=== PATIENT | female | born 1940 | race Caucasian/White ===

== ENCOUNTER → 2016-03-17 | Outpatient (CLI) | payer OTHER ==
[~2016-03-17] VITALS: Ht 160 cm; Wt 67.7 kg
[~2016-03-17] MED LIST: AMBIEN 10 MG TA10 MG PO; ASPIRIN EC325 M1 PO; ASPIRIN325 PO; ASPIRIN81 M2 PO; BETA BLOCKER PO; CYCLOBENZAPRINE10 MG PO; FENTANYL PA25 MCG/HR TRANSDERM; GABAPENTIN PO; HYDROCODON-ACE1 EAC5 PO; LEVOTHYROXIN0.025 MG PO; LIDODERM 5%1 PATCH TOP; LOPRESSOR25 PO; LOPRESSOR50 PO; LOW DOSE ASPIRI81 M1 PO; MIRALAX255 GM; MULTIVITAMINS PO; NEURONTIN 300300 M1 PO; NORVASC5 MG PO; NUCYNTA50 MG PO; PLAVIX 75 MG TA75 M1 PO; PLAVIX 75 MG TA75 MG PO; PRAVACHOL40 MG PO; PROZAC 10 MG CA10 M1 PO; PROZAC10 MG PO; ROBAXIN 750 MG750 M1 PO; ULTRAM 50MG TAB50 MG PO; VITAMIN D1000 UNI1 PO; ZOCOR80 MG PO
--- NOTE | ~2016-03-17 | HPC ---
[facility] [place] [address] PAIN MANAGEMENT CONSULTATION Name: AI ONOFRE Room #: REG BRITTANY AlvarengaFélix#: [id number] Admission: 03/17/16 Attend Phys: Andrea Aguilar MD Discharge: Date of : 36 Report #: [id number] THIS REPORT FOR: //name// CC: [facility] physician/PCP Andrea Aguilar DATE OF SERVICE: 03/17/2016 FOLLOWUP VISIT FOR: Low back pain with radiculopathy. The patient is here today for repeat epidural injection. She has had a previous laminectomy as well as effusion. She has pedicle screws only on the left, which is where her pain is and it radiates along the L4-L5 distribution. As I had good success in treating her intermittent pain with injections at L4-L5 neural foraminal. This injection in between the pedicle screws has provided a greater than 80% relief for up to 2 months before pain gradually returns. She is now at pain level 6 and pain is increasing and she would like another injection. In addition to her back and radicular pain, she also has some left hip pain. Her hip pain is status post hip replacement. One month following her hip replacement in 02/2015 she had a hip dislocation. She had returned to the Emergency Room for reduction of the dislocation and has been complaining of localized soft tissue pain ever since. MEDICATIONS: Reviewed and reconciled from the electronic medical record. She takes Plavix, but discontinued it for 7 days in anticipation of an injection. PHYSICAL EXAMINATION: She is a chantal 75-year-old, appears younger than her stated age. Her blood pressure 136/69, heart rate is 54. BMI is 26.4. She walks with mild antalgic features. She has restrictions and range of motion with flexion and extension. Straight leg raising reproducing pain on the left. Tenderness also in the left hip with internal and external rotation. Sensation is normal in lower extremities. IMPRESSION: Chronic low back pain with radiculopathy status post lumbar fusion. She has radiculopathy on the left following an L4-L5. PLAN: Repeat transforaminal epidural injection L4-L5 under fluoroscopic guidance. PROCEDURE: She was taken to the fluoroscopic suite for treatment, placed prone, skin prepped with ChloraPrep. Skin anesthetized over the L4-L5 neural foramen. Triplanar fluoroscopic views were used to guide the needle into the epidural space through the neural foramen. There was no blood or CSF aspirated. A 1 mL of Omnipaque was injected with excellent spread of dye observed in the epidural space followed by 3 mL of 0.5% lidocaine mixed with 80 mg of triamcinolone. She [address] [address] PAIN MANAGEMENT CONSULTATION Name: JEMIMAAI RAMÍREZ Room #: REG BRITTANY Holliday#: [id number] Admission: 03/17/16 Attend Phys: Andrea Aguilar MD Discharge: Date of : 38 Report #: [id number] tolerated the procedure well and was observed for 45 minutes and discharged. Followup visit planned on an as needed basis. No new medications were ordered today. <ELECTRONICALLY SIGNED> By: Andrea Aguilar MD 03/29/16 1130 1423 2104 Andrea Aguilar MD /nt
[2016-03-17 09:59] VITALS: BP 136/69
== END | disposition home or self-care (01) ==
LOC: PAIN 07:00
DX: M54.16 Radiculopathy, lumbar region (principal); G89.29 Other chronic pain; Z98.890 Other specified postprocedural states

== ENCOUNTER → 2016-11-17 | Outpatient (CLI) | payer OTHER ==
[~2016-11-17] VITALS: Ht 160 cm; Wt 66.2 kg
--- NOTE | ~2016-11-17 | HPC ---
[facility] [place] [address] PAIN MANAGEMENT CONSULTATION Name: AI ONOFRE Room #: REG BRITTANY Alvarenga.#: [id number] Admission: 11/17/16 Attend Phys: Andrea Aguilar MD Discharge: Date of : 38 Report #: [id number] THIS REPORT FOR: //name// CC: JOHANNY Aguilar DATE OF SERVICE: 11/17/2016 Followup visit for chronic pain. SUBJECTIVE: The patient returns to pain clinic today with a new onset pain. She has trigger points located in the right flank. She has had numerous tests to look for gallbladder, kidney stones or other causes. CT and MRIs have all been negative other than a small cyst on the right kidney, which is felt to be benign. Her pain is deep and muscular, is located underneath the ribcage in the area of the quadratus lumborum and other posterior muscles. It is worsened with flexion and extension. She also has pain in her left buttock that radiates down into her leg consistent with radiculopathy, which has been treated successfully in the past with epidural injections using a transforaminal approach. Today, her most significant pain, however, is the right flank. PHYSICAL EXAMINATION: VITAL SIGNS: Blood pressure is 129/73, heart rate 80, respirations 16. MUSCULOSKELETAL: She has pain with weightbearing and walking, pain with forward flexion and extension. Straight leg raising is positive on the left, reproducing sciatica down into the left anterior leg and foot. Myofascial tenderness is noted in the right flank as noted above. IMPRESSION: Myofascial pain, right flank. RECOMMENDATIONS: Trigger point injections. PROCEDURE: Skin was prepped with ChloraPrep and I used a 27-gauge needle to infiltrate a total of 15 mL of 0.25% bupivacaine and 15 mg of triamcinolone into multiple muscle groups in the right flank. The area was massaged deeply before she was discharged. The pain score had diminished to 0 at the time of discharge. Followup visit planned as needed for treatment of her radiculopathy. By: [id number] Andrea Aguilar MD /nt
[2016-11-17 14:37] VITALS: BP 111/67
== END ==
LOC: PAIN 07:36
DX: M79.1 Myalgia (principal); I10 Essential (primary) hypertension; M17.12 Unilateral primary osteoarthritis, left knee; F32.9 Major depressive disorder, single episode, unspecified; Z79.01 Long term (current) use of anticoagulants; Z88.5 Allergy status to narcotic agent; Z79.899 Other long term (current) drug therapy; Z79.82 Long term (current) use of aspirin

== ENCOUNTER → 2016-12-01 | Outpatient (CLI) | payer OTHER ==
[~2016-12-01] VITALS: Ht 160 cm; Wt 63.5 kg
--- NOTE | ~2016-12-01 | HPC ---
[facility] [place] [address] [address] PAIN MANAGEMENT CONSULTATION Name: AI ONOFRE Room #: REG BRITTANY Alvarenga.#: [id number] Admission: 12/01/16 Attend Phys: Andrea Aguilar MD Discharge: Date of : 38 Report #: [id number] THIS REPORT FOR: //name// CC: JOHANNY Aguilar DATE OF SERVICE: 12/01/2016 Followup visit for chronic low back pain status post lumbar fusion. The patient is here today for left L4-L5 transforaminal injection. She has received up to 90 days of good pain relief with these injections intermittent and it is grateful for relief to avoid any further surgery. She is back today with pain in her left leg, which she describes as chronic, constant, aching, sharp and stabbing, 5-6/10, worse with standing and walking. Medications reviewed and reconciled from the electronic record and we discussed her current usage. She has tramadol 50 mg for pain and takes Ambien at night to help with sleep. She has been on Plavix but discontinued 7 days in anticipation of injection. I gave her some trigger point injections and she said she had about 5-6 days of really pretty significant discomfort, then woke up one morning and the pain was gone. She is grateful for the trigger points. PHYSICAL EXAMINATION: Today, she is pleasant, moves from sitting to standing position with antalgic feature. She has positive straight leg raising on the left that follows an L4-L5 distribution. She describes her straight leg raising as electrical, shooting, sharp, stabbing pain. Sensation is intact. No focal weakness is noted. IMPRESSION: Post-laminectomy syndrome with radiculopathy, fusion of L4-L5. PLAN: Repeat transforaminal epidural injection at L4-L5 under fluoroscopic guidance. The patient was prepped with ChloraPrep. Skin was anesthetized and a 20-gauge Tuohy epidural needle advanced into the neural foramen using triplanar fluoroscopic views. I injected 1 mL of Omnipaque and good spread of dye was observed into the epidural space after adjusting the needle. I followed it with 3 mL of 0.5% lidocaine mixed with 80 mg of triamcinolone. She tolerated the procedure well and was observed for 30 minutes and discharged. [address] [address] PAIN MANAGEMENT CONSULTATION Name: AI ONOFRE Room #: REG [facility] RikFélix#: [id number] Admission: 12/01/16 Attend Phys: Andrea Aguilar MD Discharge: Date of : 38 Report #: [id number] Follow up as needed. By: 1542 [id number] Andrea Aguilar MD /nt
[2016-12-01 13:52] VITALS: BP 124/56
== END | disposition home or self-care (01) ==
LOC: PAIN 07:27
DX: M54.16 Radiculopathy, lumbar region (principal); M96.1 Postlaminectomy syndrome, not elsewhere classified; G89.29 Other chronic pain; Z98.890 Other specified postprocedural states; Z88.6 Allergy status to analgesic agent; Z79.899 Other long term (current) drug therapy; Z79.82 Long term (current) use of aspirin

== ENCOUNTER → 2017-08-17 | Outpatient (CLI) | payer OTHER ==
[~2017-08-17] VITALS: Ht 152.4 cm; Wt 69.8 kg
--- NOTE | ~2017-08-17 | HPC ---
[facility] [place] [address] PAIN MANAGEMENT CONSULTATION Name: AI ONOFRE Room #: REG BRITTANY Alvarenga.#: [id number] Admission: 08/17/17 Attend Phys: Andrea Aguilar MD Discharge: Date of : 38 Report #: [id number] THIS REPORT FOR: //name// CC: JOHANNY Mcclelland MD Physician staff Andrea Aguilar DATE OF SERVICE: 08/17/2017 Followup visit for postlaminectomy syndrome. The patient is here today for transforaminal epidural injection. She responds beautifully to these injections. She had a fusion and continues to complain of pain at the area where she has pedicle screws and bell on the left. The pain radiates down into her left leg following an L4 distribution. Her last injection performed in 2017 provided months of relief. She is here today for another transforaminal epidural injection. She has discontinued her Plavix in anticipation of that injection. She has been off it for 7 days. All medications were reviewed and reconciled. There have been no changes. We do not provide any oral opioid medications for her for treatment of pain. She is not a fall risk. She does not use tobacco. She has maintained her weight. Her BMI is 30. She watches her diet carefully. PHYSICAL EXAMINATION: 5 feet tall, 152 pounds, BMI is 30, blood pressure 126/56, heart rate 64. Pain intensity is a 6-7. She moves easily from sitting to standing position, but walks with antalgic gait. She has positive straight leg raising on the left. Pain radiates down the lateral aspect of the leg as well as a bit towards the anterior aspect of the leg. Sensation is intact. No focal weakness is noted. Deep tendon reflexes are diminished bilaterally in lower extremities. IMPRESSION: Lumbar radiculopathy on the left. RECOMMENDATION: Left L4-L5 transforaminal epidural injection under fluoroscopic guidance. PROCEDURE: She was taken to fluoroscopic suite, placed prone, skin prepped with ChloraPrep. Skin anesthetized over the L4-L5 neural foramen. Using triplanar fluoroscopic views, I advanced the needle nicely into the epidural space. 1 mL of Omnipaque demonstrated spread within the epidural space and along the nerve [address] [address] PAIN MANAGEMENT CONSULTATION Name: AI ONOFRE Room #: REG BRITTANY Holliday#: [id number] Admission: 08/17/17 Attend Phys: Andrea Aguilar MD Discharge: Date of : 38 Report #: [id number] root. It was then followed by 3 mL of 0.5% lidocaine mixed with 80 mg triamcinolone. She tolerated the procedure well and was observed for 45 minutes and discharged. Followup visit is planned in the pain clinic on an as needed basis. No medications were ordered for the patient today. By: 1138 1845 Andrea Aguilar MD /ramos
[2017-08-17 10:14] VITALS: BP 126/56
== END | disposition home or self-care (01) ==
LOC: PAIN 06:42
DX: M54.16 Radiculopathy, lumbar region (principal); G89.29 Other chronic pain; M96.1 Postlaminectomy syndrome, not elsewhere classified; Z98.890 Other specified postprocedural states; Z79.899 Other long term (current) drug therapy; Z79.82 Long term (current) use of aspirin; Z88.8 Allergy status to other drugs, medicaments and biological substances

== ENCOUNTER → 2017-09-17 | Outpatient (CLI) | payer OTHER ==
[~2017-09-17] VITALS: Ht 152.4 cm; Wt 69.5 kg
--- NOTE | ~2017-09-17 | HPC ---
[facility] [address] [place] [address] PAIN MANAGEMENT CONSULTATION Name: AI ONOFRE Room #: REG BRITTANY RoFélixDonald.#: [id number] Admission: 09/17/17 Attend Phys: Andrea Aguilar MD Discharge: Date of : 38 Report #: [id number] THIS REPORT FOR: //name// CC: JOHANNY Mcclelland MD Physician staff Andrea Aguilar DATE OF SERVICE: 09/17/2017 Followup visit for chronic pain. History of post-laminectomy syndrome with fusion in the lumbosacral region and now with cervical radiculopathy, bilateral involving C5 through C7 distribution. The patient is here today at the request of Jenelle Dietrich APRN for a cervical epidural injection. She has responded nicely to a transforaminal injection provided intermittently around her hardware in the low back for left lumbar radicular symptoms. Her last injection there was about 1 month ago and she has sustained improvement. She is complaining today, more of pain in the cervical region with radiation into her arms in addition to pain that follows a dermatomal distribution into the hands. She also complains of tingling and numbness. She has not noticed significant weakness with things such as taking jar lids off or fine motor issues, but the numbness and the pain are bothersome. Reviewed her MRI in detail with Jenelle Dietrich, so I did not do that with her once again with case thoroughness, but she understands that neural foraminal stenosis and spinal stenosis is an underlying reason for her symptoms. I agree with Jenelle that an injection may provide some symptomatic relief and might be able to be effective preventing the need for surgery. All medications have been reviewed and reconciled, there have been no significant changes. She takes no opioid medication. She is not a fall risk. She was on Plavix, but has discontinued it for 9 days in anticipation of an injection. She does not have hypertension. 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 PHYSICAL EXAMINATION: She is a pleasant female. Blood pressure 119/70, heart rate 96, respirations 16. BMI is 29.9. Cervical range of motion is limited in extension, which reproduces symptoms at about 15 degrees. Rotational movements are performed with some mild exacerbation of symptoms as well as lateral tilt. There is tenderness over the vertebral prominence. Documentation Spec strength, biceps, triceps strength are adequate. Sensation is diminished in the C5-C6 [address] [address] PAIN MANAGEMENT CONSULTATION Name: AI ONOFRE Room #: REG CL Colette.#: [id number] Admission: 09/17/17 Attend Phys: Andrea Aguilar MD Discharge: Date of : 38 Report #: [id number] distribution as well as laterally out into the site C7-C8 distribution. Deep tendon reflexes are trace at the biceps, triceps and brachioradialis and 1+ at the knees and ankles with no evidence of hyperreflexia. MRI scan reviewed, shows multilevel spinal stenosis and central stenosis of the lower cervical spine. RECOMMENDATIONS: Cervical epidural injection under fluoroscopic guidance. PROCEDURE: She was taken to fluoroscopic suite for the injection and she was placed prone. She was anesthetized with 1% lidocaine over C6-C7. A 20-gauge Tuohy epidural needle advanced on the first attempt in the epidural space with loss of resistance. There was no blood or CSF aspirated. 1 mL of Omnipaque was injected. Good spread of dye observed in the epidural space followed by 3 mL of 0.5% lidocaine mixed with 80 mg triamcinolone. She tolerated the procedure well and was observed for 45 minutes and discharged. Followup visit planned in the pain clinic in 3 months. By: 1131 1944 Andrea Aguilar MD /nt
[2017-09-17 10:12] VITALS: BP 119/70
== END | disposition home or self-care (01) ==
LOC: PAIN 06:37
DX: M54.12 Radiculopathy, cervical region (principal)

== ENCOUNTER → 2017-12-03 | Outpatient (CLI) | payer OTHER ==
[~2017-12-03] VITALS: Ht 160 cm; Wt 70.0 kg
--- NOTE | ~2017-12-03 | HPC ---
[facility] [place] [address] PAIN MANAGEMENT CONSULTATION Name: AI ONOFRE Room #: REG Bijal Alvarenga.#: [id number] Admission: 12/03/17 Attend Phys: Andrea Aguilar MD Discharge: Date of : 38 Report #: [id number] THIS REPORT FOR: //name// CC: JOHANNY Mcclelland MD Physician staff Andrea Aguilar DATE OF SERVICE: 12/03/2017 Followup visit for chronic low back pain with radiculopathy, post-laminectomy and fusion. The patient returns to clinic today and would like an epidural injection using a transforaminal approach at L4-L5. This has been a successful procedure performed for her on multiple occasions and she has consistent results. We are grateful for the benefit that she receives from this because it allows her to get by without taking stronger pain medication. Today, she reports that her pain is returning. Her last injection was in August for the same condition, so it has been almost 3-1/2 months. 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 I am pleased to report that she had a substantial improvement following that injection. She no longer has any cervically generated symptoms. The majority of her pain now is in the low back and radiates down into her left leg consistent with a post-laminectomy radiculopathy. She has been fused and she has remaining hardware on the left and right hardware is not present. The patient has known neural foraminal stenosis and spinal stenosis. She has seen the neurosurgery team and Jenelle Dietrich, advanced practice nurse, has noted that she responds well to epidural injections and agrees with this process of going forward with epidural injections on an as needed basis. PHYSICAL EXAMINATION: The patient is pleasant, alert and oriented, without signs of depression, anxiety or overmedication. She is able to move from sitting to standing position, but ambulates with antalgic features. She has pain across her low back. Tenderness over her scar. She has pain with forward flexion and extension. Rotational movements also exacerbate pain. Straight leg raising on the left reproduces pain radiating into the lower leg. She has some numbness and tingling. IMPRESSION: Chronic low back pain status post laminectomy infusion. [address] [address] PAIN MANAGEMENT CONSULTATION Name: JEMIMAAI ELMORE Room #: REG Bijal Alvarenga.#: [id number] Admission: 12/03/17 Attend Phys: Andrea Aguilar MD Discharge: Date of : 38 Report #: [id number] RECOMMENDATIONS: Transforaminal epidural injection under fluoroscopic guidance. Prior to performing procedure, we reviewed all medications. She has been off her blood thinner for 7 days. Risks and benefits were reviewed once again before we proceeded. She was taken to fluoroscopic suite, placed prone, skin prepped with ChloraPrep. Skin anesthetized over the L4-L5 neural foramen. A 20-gauge Tuohy epidural needle was advanced between the hardware pedicle screws and into the neural foramen with triplanar fluoroscopic views. There was no blood nor CSF aspirated. 1 mL of Isovue demonstrated good spread of dye into the epidural space and also into the neural foramen; it was followed by 3 mL of 0.5% lidocaine mixed with 80 mg of triamcinolone. She tolerated the procedure well. She was observed for 45 minutes. Followup visit is planned in the pain clinic in 3 months, sooner if necessary. No pain medications were ordered. She is instructed to restart her blood thinners this evening. <ELECTRONICALLY SIGNED> By: Andrea Aguilar MD 12/04/17 1312 1325 2152 Andrea Aguilar MD /nt
[2017-12-03 10:54] VITALS: BP 117/59
== END | disposition home or self-care (01) ==
LOC: PAIN 07:10
DX: M54.16 Radiculopathy, lumbar region (principal); G89.29 Other chronic pain; M96.1 Postlaminectomy syndrome, not elsewhere classified; M48.061 Spinal stenosis, lumbar region without neurogenic claudication; Z98.890 Other specified postprocedural states; Z88.6 Allergy status to analgesic agent; Z79.899 Other long term (current) drug therapy; Z79.82 Long term (current) use of aspirin

== ENCOUNTER → 2018-05-06 | Outpatient (CLI) | payer OTHER ==
[~2018-05-06] VITALS: Ht 160 cm; Wt 70.9 kg
[2018-05-06 11:16] VITALS: BP 138/62
--- NOTE | 2018-05-06 11:24 | NUR ---
Pain Clinic Assessment: 1. History of Osteoarthritis: BACK HIPS History of Rheumatoid Arthritis: Not Applicable 2. Height: 5 ft. 3 in. 160.0 cm. Weight: 156.4 lb. oz. 70.943 kg. Patient's BMI: 27.7 3. Vital Signs: BP: 138/62 Pulse: 95 Resp: 16 Temp: 02 Sat: 96 ECG Mon: 4. Pain Intensity: 7 5. Fall Risk: Dizziness: N Needs help standing or walking: N Fallen in the last 3 months: N Fall risk comments: 6. Patient on Blood Thinner: Clopidogrel Bisulf(Plavix 7. History of Hypertension: N 8. Opioid Therapy greater than 6 weeks: N Opiate Contract Signed: 9. Risk Assessment Tool Provided: 2-low risk 10. Functional Assessment Tool: 11. Recreational Drug Use: Never Drug Type: Tobacco Use: Never Smoker Tobacco Type: Amount or Packs/day: How Many Years: Alcohol Use: No Frequency: Quant:
--- NOTE | 2018-05-12 15:29 | CRIT ---
[facility] [address] [place] [address] CRITICAL CARE NOTE Name: AI ONOFRE Room #: REG BRITTANY Alvarenga.#: [id number] Admission: 05/06/18 ������������������ Attend Phys: Andrae Aguilar MD Discharge: ������������������ Date of : 38 Report #: [id number] THIS REPORT FOR: //name// CC: JOHANNY RUANO Physician staff Andrea Aguilar DATE OF SERVICE: 05/06/2018 Followup visit for chronic low back pain with radiculopathy, post laminectomy and fusion. The patient is a longstanding patient who has responded very beautifully to epidural injections. She has a fusion that has continued to cause chronic pain and she has radicular component with it as well. Her pain is primarily on the left and radiates down through the left leg. I have injected her on several occasions between the 2 pedicle screws using a transforaminal approach with an excellent response. She is here today hoping for another injection. She scores her current pain as a 7/10, burning, weakness in her leg, worse with standing and improved by medication and the epidural. MEDICATIONS: All medications were reviewed and reconciled from the electronic medical record. She takes Plavix, but has discontinued it for over 7 days in anticipation of an injection. Medical record actually states that her last dose of Plavix was on 11/25/2017. ALLERGIES: CODEINE. She denies use of tobacco or alcohol. She has not fallen. She is not a fall risk. She is at low risk for addiction having completed an opioid risk tool with a score of 2. PHYSICAL EXAMINATION: Blood pressure 138/62, heart rate 95, respirations 16, BMI is 27.7. She moves easily from sitting to standing position, but has a mild antalgic feature to her gait. She has limited range of motion in flexion, extension limited by her spinal surgery. She has tenderness across her scar. She has more pain that radiates into the left hip than anything else. Positive straight leg raising discomfort is noted with pain radiating into the left hip. IMPRESSION: Chronic low back pain, status post laminectomy and fusion. She has an L4-L5 radiculopathy on the left, which has responded to epidural injection. She has known foraminal and spinal stenosis at that level. PLAN: Repeat epidural injection under fluoroscopic guidance. [address] [address] CRITICAL CARE NOTE Name: JEMIMAAI RAMÍREZ Room #: REG [facility] Colette.#: [id number] Admission: 05/06/18 ������������������ Attend Phys: Andrea Aguilar MD Discharge: ������������������ Date of : 36 Report #: [id number] PROCEDURE: She was taken to the fluoroscopic suite for a transforaminal injection. She was placed prone, skin was prepped with ChloraPrep. Skin was anesthetized over the L4-L5 neural foramen. Using triplanar fluoroscopic views, I advanced the needle into the neural foramen. 1 mL of Omnipaque was injected. Good spread of dye was observed in the epidural space and along the pedicle. It was then followed by 3 mL of 0.5% lidocaine mixed with 80 mg of triamcinolone. She tolerated the procedure well. Pain reduced to a 2 at discharge. Follow up as needed. ��������������������������������������������� <ELECTRONICALLY SIGNED> ���������������������������������������� By: Andrea Aguilar MD ��������������������������������������������� 05/12/18 1529 1030 2242 Andrea Aguilar MD /nt
== END | disposition home or self-care (01) ==
LOC: PAIN 06:47
DX: M54.16 Radiculopathy, lumbar region (principal); G89.29 Other chronic pain; M19.90 Unspecified osteoarthritis, unspecified site; Z98.890 Other specified postprocedural states; Z88.6 Allergy status to analgesic agent; Z79.01 Long term (current) use of anticoagulants

== ENCOUNTER → 2018-09-13 | Outpatient (CLI) | payer OTHER ==
[~2018-09-13] VITALS: Ht 152.4 cm; Wt 69.1 kg
--- NOTE | ~2018-09-13 | HPC ---
[facility] [place] [address] PAIN MANAGEMENT CONSULTATION Name: IA ONOFRE Room #: REG BRITTANY RoFélixDonald.#: [id number] Admission: 09/13/18 ������������������ Attend Phys: Andrea Aguilar MD Discharge: ������������������ Date of : 36 Report #: [id number] THIS REPORT FOR: //name// CC: JOHANNY RUANO Physician staff Andrea Aguilar DATE OF SERVICE: 09/13/2018 Followup visit for chronic low back pain with radiculopathy radiating down the left leg. Status post laminectomy and fusion. She has pedicle screw between L4 and L5. The patient was last seen in April. She is here today with recurrence of pain radiating into her left leg. The record will reflect that she has responded very nicely to epidural injections. The injection was performed between the 2 pedicle screws using a transforaminal approach at L4-L5. She typically had pretty significant improvement within the first few days and then it sustained. Her last injection worked well. She supplements with 1 tramadol a day generally and then when the pain becomes more severe, she takes up to 3 per day. Medications are provided by her primary care service, so I am providing only the interventional approach for her. Today, she returns to clinic scoring her pain as a 5-6/10. She says it does not radiate as far, but is more intense in the buttock and radiating through the thigh. This is consistent with the dermatomal distribution of L4 as well as with the L5 distribution on the left exclusively. PQRS: 1. Positive for osteoarthritis involving hips and back. 2. BMI is 29. 3. Vital signs: Blood pressure 131/73, heart rate 62, respirations 16, O2 sat 97%. 4. Pain intensity, 5-6/10. 5. She has no difficulty getting up and down from a chair, walking or standing. She has not fallen in the last 3 months. 6. She is on Plavix, which was discontinued for the requisite 7 days in anticipation of an injection today. 7. She has no history of hypertension. All medications were reviewed and reconciled today. 8. No opioid agreement in our clinic. She is provided medication, tramadol by her primary physician. 9. She has completed an opioid risk tool as we do for all patients. Her score is 2 consistent with low risk for addiction. 10. She denies use of tobacco or alcohol. [address] [address] PAIN MANAGEMENT CONSULTATION Name: AI ONOFRE Room #: CHINTAN SOTO Mg#: [id number] Admission: 09/13/18 ������������������ Attend Phys: Andrea Aguilar MD Discharge: ������������������ Date of : 36 Report #: [id number] PHYSICAL EXAMINATION: VITAL SIGNS: As noted. BMI 29.8. She moves from an independent standing position to walking without difficulty. Her gait is nonantalgic. CHEST: Clear. CARDIAC: Rhythm is regular. MUSCULOSKELETAL: Examination of the spine reveals scarring from previous surgery, which is mildly tender. Pain radiates from the scar through the left hip into the L4-L5 distribution as far as the posterolateral thigh. She has less discomfort into the calf today. Straight leg raising is positive on the left with radicular symptoms. IMPRESSION: Chronic low back pain, post-laminectomy syndrome with fusion. She has a single pedicle screw between L4 and L5. PROCEDURE: L4-L5 transforaminal epidural injection under fluoroscopic guidance. DESCRIPTION OF PROCEDURE: She was taken to fluoroscopic suite, placed prone, skin prepped with ChloraPrep. Skin anesthetized over the L4-L5 neural foramen. Using triplanar fluoroscopic views, I advanced needle into the neural foramen. A 1 mL of Omnipaque injected with excellent spread of dye observed into the epidural space and along the nerve. It was followed then by 3 mL of 0.5% lidocaine mixed with 80 mg triamcinolone. There were no complications. She tolerated the procedure well. She was observed in recovery room and discharged with a followup as needed. No medications ordered. ��������������������������������������������� ���������������������������������������� By: ��������������������������������������������� [id number] Andrea Aguilar MD /nt
[2018-09-13 11:12] VITALS: BP 131/73
--- NOTE | 2018-09-13 11:26 | NUR ---
Pain Clinic Assessment: 1. History of Osteoarthritis: BACK HIPS History of Rheumatoid Arthritis: Not Applicable 2. Height: 5 ft. 0 in. 152.4 cm. Weight: 152.4 lb. oz. 69.128 kg. Patient's BMI: 29.8 3. Vital Signs: BP: 131/73 Pulse: 62 Resp: 16 Temp: 02 Sat: 97 ECG Mon: 4. Pain Intensity: 5-6 5. Fall Risk: Dizziness: N Needs help standing or walking: N Fallen in the last 3 months: N Fall risk comments: 6. Patient on Blood Thinner: Clopidogrel Bisulf(Plavix 7. History of Hypertension: N 8. Opioid Therapy greater than 6 weeks: N Opiate Contract Signed: 9. Risk Assessment Tool Provided: 2-low risk 10. Functional Assessment Tool: 45 11. Recreational Drug Use: Never Drug Type: Tobacco Use: Never Smoker Tobacco Type: Amount or Packs/day: How Many Years: Alcohol Use: No Frequency: Quant:
== END | disposition home or self-care (01) ==
LOC: PAIN 06:54
DX: M54.16 Radiculopathy, lumbar region (principal); G89.29 Other chronic pain; M96.1 Postlaminectomy syndrome, not elsewhere classified; M19.90 Unspecified osteoarthritis, unspecified site; Z79.891 Long term (current) use of opiate analgesic; Z88.6 Allergy status to analgesic agent; Z98.890 Other specified postprocedural states; Z79.82 Long term (current) use of aspirin; Z79.899 Other long term (current) drug therapy

== ENCOUNTER → 2019-02-24 | Outpatient (CLI) | payer OTHER ==
[~2019-02-24] VITALS: Ht 160 cm; Wt 67.0 kg
[~2019-02-24] MED LIST changes: +TRAMADOL 50 MG50 MG PO
--- NOTE | ~2019-02-24 | HPC ---
[facility] [place] [address] PAIN MANAGEMENT CONSULTATION Name: AI ONOFRE Room #: REG BRITTANY RoFélixDonald.#: [id number] Admission: 02/24/19 Attend Phys: Andrea Aguilar MD Discharge: Date of : 36 Report #: [id number] THIS REPORT FOR: //name// CC: JOHANNY Pruitt Physician staff Andrea Aguilar DATE OF SERVICE: 02/24/2019 Followup visit for chronic low back pain, post-laminectomy fusion. Lumbar radiculopathy L4-L5 distribution on the left. The patient returns to pain clinic today to repeat the transforaminal epidural injection that has provided her so much relief over the last few years. She has a longstanding history of back pain and has had several operations. Lumbar fusion was performed and she has hardware that remains in the L4-L5 region on the left only. Her symptoms are all lumbar radicular and follow that distribution. She has responded beautifully to an L4-L5 transforaminal epidural injection under fluoroscopic guidance. Her last injection 6 months ago wore off, somewhere around December. She has been trying to get back in, but was only able to do so now. She would like another injection. This helps cut down on her use of pain medication including tramadol and she sleeps better. When she is having trouble sleeping, she uses zolpidem. All medications were reviewed and reconciled. PQRS REVIEW: Positive for osteoarthritis of hips and back. BMI 29. Blood pressure is 125/62, heart rate 65. Pain intensity 6. She has had no falls in the last 3 months. Plavix, which she typically takes was discontinued in anticipation of her injection. She has been off for 7 days. She denies hypertension. I reviewed all her medications. She has not received medication from our clinic and has no opioid agreement signed. She did complete an opioid risk tool as we request of all patients and her score is 2. This is consistent with a low risk for addiction. She denies use of tobacco or alcohol. PHYSICAL EXAMINATION: VITAL SIGNS: As noted. She moves independently from sitting to standing position. Gait is mildly antalgic. She does not need a cane and she does not appear to be unstable or a fall risk. CHEST: Clear. CARDIAC: Rhythm regular. MUSCULOSKELETAL: Examination of the spine reveals tenderness along the scar. Pain follows the L4-L5 distribution all the way into the foot today. Straight leg raising is mildly positive consistent with L4-L5 radicular symptoms. [address] [address] PAIN MANAGEMENT CONSULTATION Name: AI ONOFRE Room #: REG [facility].#: [id number] Admission: 02/24/19 Attend Phys: Andrea Aguilar MD Discharge: Date of : 36 Report #: [id number] IMPRESSION: Chronic low back pain, post-laminectomy syndrome, status post fusion. She has a single level fusion with pedicle screws at L4 and L5, connected by a bar. Lumbar radiculopathy. PROCEDURE: Left L4-L5 transforaminal epidural injection under fluoroscopic guidance. After informed consent, she was taken to fluoroscopic suite, placed prone, skin prepped with ChloraPrep. Skin anesthetized over the L4-L5 neural foramen. Using triplanar fluoroscopic views, I advanced the needle in the neural foramen. A 1 mL of Omnipaque injected, showed excellent spread of dye into the epidural space and along the nerve root. It was followed by 3 mL of 0.5% lidocaine mixed with 80 mg triamcinolone. She tolerated the procedure well without complication. She was taken to recovery room for observation and discharged in good condition. A followup visit planned as needed. By: [id number] Andrea Aguilar MD /nt
[2019-02-24 09:53] VITALS: BP 152/76
--- NOTE | 2019-02-24 10:07 | NUR ---
Pain Clinic Assessment: 1. History of Osteoarthritis: BACK HIPS History of Rheumatoid Arthritis: Not Applicable 2. Height: 5 ft. 3 in. 160.0 cm. Weight: 147.8 lb. oz. 67.042 kg. Patient's BMI: 26.2 3. Vital Signs: BP: 152/76 Pulse: 74 Resp: 18 Temp: 02 Sat: 97 ECG Mon: 4. Pain Intensity: 9 AT WORST 5. Fall Risk: Dizziness: N Needs help standing or walking: N Fallen in the last 3 months: N Fall risk comments: 6. Patient on Blood Thinner: Clopidogrel Bisulf(Plavix 7. History of Hypertension: N 8. Opioid Therapy greater than 6 weeks: N Opiate Contract Signed: 9. Risk Assessment Tool Provided: 1-LOW RISK 10. Functional Assessment Tool: 50/70 11. Recreational Drug Use: Never Drug Type: Tobacco Use: Never Smoker Tobacco Type: Amount or Packs/day: How Many Years: Alcohol Use: No Frequency: Quant:
== END | disposition home or self-care (01) ==
LOC: PAIN 06:42
DX: M54.16 Radiculopathy, lumbar region (principal); G89.29 Other chronic pain; M96.1 Postlaminectomy syndrome, not elsewhere classified; M19.90 Unspecified osteoarthritis, unspecified site; Z98.890 Other specified postprocedural states; Z88.6 Allergy status to analgesic agent; Z79.899 Other long term (current) drug therapy

== ENCOUNTER → 2019-06-23 | Outpatient (CLI) | payer OTHER ==
[~2019-06-23] VITALS: Ht 160 cm; Wt 67.7 kg
--- NOTE | ~2019-06-23 | HPC ---
[facility] [place] [address] PAIN MANAGEMENT CONSULTATION Name: AI ONOFRE Room #: REG BRITTANY Alvarenga.#: [id number] Admission: 06/23/19 Attend Phys: Andrea Aguilar MD Discharge: Date of : 36 Report #: [id number] THIS REPORT FOR: cc: JOHANNY PRUITT MD FAM - No family physician/PCP Andrea Aguilar MD ~ CC: [facility] physician/PCP JOHANNY Aguilar DATE OF SERVICE: 06/23/2019 Followup visit for chronic low back pain, post-laminectomy. She has a left sided L4-L5 pedicle screw. The right sided has been removed. The patient today for a left transforaminal epidural injection. She has responded nicely to these for lumbar radiculopathy over the years. All of her pain is on the left and follows an L4-L5 distribution. PQRS REVIEW: Positive for osteoarthritis. BMI 26.4, blood pressure 151/72, heart rate 70, respirations 16, O2 sat 100%. Pain intensity at this point 9/10 at its worst. She is not a fall risk. The patient is on Plavix, it was discontinued for 1 week in anticipation of injection. Last dose 06/15/2019. She denies hypertension. She is not on an opioid agreement, does not take pain medication beyond tramadol, which is provided for her by Johanny Pruitt, her primary care physician in [place]. Last prescription was for 180 tablets on 05/02/2019. She denies side effects. She has completed an opioid risk tool and her assessment is 1, this puts her in the low risk category. Her functional assessment score 50/70 or high interference of her pain with day-to-day activities. She denies use of tobacco and alcohol. IMPRESSION: 1. Chronic pain, status post lumbar laminectomy and fusion. Failed back. 2. Left L4-L5 radiculopathy. PROCEDURE: Left L4-L5 transforaminal epidural injection under fluoroscopic guidance. DESCRIPTION OF PROCEDURE: She was taken to the fluoroscopic suite for treatment. She was placed prone, skin was prepped with ChloraPrep. Skin anesthetized over the L4-L5 neural foramen. Using triplanar fluoroscopic views, I advanced the needle into the neural foramen. Careful positioning resulted in excellent placement within the epidural space and 0.25 mL followed by another mL of Omnipaque demonstrated an epidurogram. This was then followed by 3 mL of 0.5% lidocaine mixed with 60 mg of triamcinolone. She tolerated the procedure [address] [address] PAIN MANAGEMENT CONSULTATION Name: AI ONOFRE Room #: REG BRITTANY Holliday#: [id number] Admission: 06/23/19 Attend Phys: Andrea Aguilar MD Discharge: Date of : 36 Report #: [id number] well and was observed for 45 minutes and discharged with a pain score of 0. Follow up as needed. By: [id number] Andrea Aguilar MD /ramos
[2019-06-23 12:51] VITALS: BP 151/72
--- NOTE | 2019-06-23 13:00 | NUR ---
Pain Clinic Assessment: 1. History of Osteoarthritis: BACK HIPS History of Rheumatoid Arthritis: Not Applicable 2. Height: 5 ft. 3 in. 160.0 cm. Weight: 149.2 lb. oz. 67.677 kg. Patient's BMI: 26.4 3. Vital Signs: BP: 151/72 Pulse: 70 Resp: 16 Temp: 02 Sat: 100 ECG Mon: 4. Pain Intensity: 9 AT WORST 5. Fall Risk: Dizziness: N Needs help standing or walking: N Fallen in the last 3 months: N Fall risk comments: 6. Patient on Blood Thinner: Clopidogrel Bisulf(Plavix 7. History of Hypertension: N 8. Opioid Therapy greater than 6 weeks: N Opiate Contract Signed: 9. Risk Assessment Tool Provided: 1-LOW RISK 10. Functional Assessment Tool: 50/70 11. Recreational Drug Use: Never Drug Type: Tobacco Use: Never Smoker Tobacco Type: Amount or Packs/day: How Many Years: Alcohol Use: No Frequency: Quant:
== END | disposition home or self-care (01) ==
LOC: PAIN 06:55
DX: M54.16 Radiculopathy, lumbar region (principal); G89.29 Other chronic pain; M96.1 Postlaminectomy syndrome, not elsewhere classified; Z98.890 Other specified postprocedural states; Z79.899 Other long term (current) drug therapy

== ENCOUNTER → 2019-12-29 | Outpatient (CLI) | payer OTHER ==
[~2019-12-29] VITALS: Ht 160 cm; Wt 67.6 kg
[2019-12-29 12:40] VITALS: BP 132/70
--- NOTE | 2019-12-29 12:47 | NUR ---
Answering YES to this query will charge for the Pneumococcal Vaccine. Please answer YES ONLY if administering vaccine at this time.
--- NOTE | 2019-12-29 12:49 | NUR ---
Pain Clinic Assessment: 1. History of Osteoarthritis: BACK HIPS History of Rheumatoid Arthritis: Not Applicable 2. Height: 5 ft. 3 in. 160.0 cm. Weight: 149.0 lb. oz. 67.586 kg. Patient's BMI: 26.4 3. Vital Signs: BP: 132/70 Pulse: 66 Resp: 16 Temp: 02 Sat: 97 ECG Mon: 4. Pain Intensity: 6 5. Fall Risk: Dizziness: N Needs help standing or walking: N Fallen in the last 3 months: N Fall risk comments: 6. Patient on Blood Thinner: Clopidogrel Bisulf(Plavix 7. History of Hypertension: N 8. Opioid Therapy greater than 6 weeks: N Opiate Contract Signed: 9. Risk Assessment Tool Provided: 1-LOW RISK 10. Functional Assessment Tool: 11. Recreational Drug Use: Never Drug Type: Tobacco Use: Never Smoker Tobacco Type: Amount or Packs/day: How Many Years: Alcohol Use: No Frequency: Quant:
== END | disposition home or self-care (01) ==
LOC: PAIN 06:56
PROVIDERS: ATTEND Anesthesiology Pain Medicine
DX: M54.16 Radiculopathy, lumbar region (principal); G89.29 Other chronic pain; Z98.890 Other specified postprocedural states; Z79.899 Other long term (current) drug therapy; Z79.01 Long term (current) use of anticoagulants; Z88.8 Allergy status to other drugs, medicaments and biological substances

== ENCOUNTER → 2020-05-24 | Outpatient (CLI) | payer OTHER ==
[~2020-05-24] VITALS: Ht 157.5 cm; Wt 68.5 kg
[2020-05-24 12:53] VITALS: BP 139/83
--- NOTE | 2020-05-24 13:21 | NUR ---
Pain Clinic Assessment: 1. History of Osteoarthritis: BACK HIPS History of Rheumatoid Arthritis: Not Applicable 2. Height: 5 ft. 2 in. 157.5 cm. Weight: 151.0 lb. oz. 68.493 kg. Patient's BMI: 27.6 3. Vital Signs: BP: 139/83 Pulse: 62 Resp: 16 Temp: 02 Sat: 98 ECG Mon: 4. Pain Intensity: 7-8 this morning 5. Fall Risk: Dizziness: N Needs help standing or walking: N Fallen in the last 3 months: N Fall risk comments: 6. Patient on Blood Thinner: Clopidogrel Bisulf(Plavix 7. History of Hypertension: N 8. Opioid Therapy greater than 6 weeks: N Opiate Contract Signed: 9. Risk Assessment Tool Provided: 1-LOW RISK 10. Functional Assessment Tool: 11. Recreational Drug Use: Never Drug Type: Tobacco Use: Never Smoker Tobacco Type: Amount or Packs/day: How Many Years: Alcohol Use: No Frequency: Quant:
== END | disposition home or self-care (01) ==
LOC: PAIN 06:55
PROVIDERS: ATTEND Anesthesiology Pain Medicine
DX: M54.16 Radiculopathy, lumbar region (principal); M96.1 Postlaminectomy syndrome, not elsewhere classified; M19.90 Unspecified osteoarthritis, unspecified site; G89.29 Other chronic pain; Z88.8 Allergy status to other drugs, medicaments and biological substances; Z98.890 Other specified postprocedural states; Z79.899 Other long term (current) drug therapy; Z20.822 Contact with and (suspected) exposure to COVID-19

== ENCOUNTER → 2020-09-24 | Outpatient (CLI) | payer OTHER ==
[~2020-09-24] VITALS: Ht 157.5 cm; Wt 67.6 kg
[~2020-09-24] MED LIST changes: +OMEPRAZOLE 20 M20 M1 PO
[2020-09-24 12:35] VITALS: BP 140/76
--- NOTE | 2020-09-24 12:43 | NUR ---
Pain Clinic Assessment: 1. History of Osteoarthritis: BACK HIPS History of Rheumatoid Arthritis: Not Applicable 2. Height: 5 ft. 2 in. 157.5 cm. Weight: 149.0 lb. oz. 67.586 kg. Patient's BMI: 27.2 3. Vital Signs: BP: 140/76 Pulse: 61 Resp: 16 Temp: 02 Sat: 98 ECG Mon: 4. Pain Intensity: 7-8 5. Fall Risk: Dizziness: N Needs help standing or walking: N Fallen in the last 3 months: N Fall risk comments: 6. Patient on Blood Thinner: Clopidogrel Bisulf(Plavix 7. History of Hypertension: N 8. Opioid Therapy greater than 6 weeks: N Opiate Contract Signed: 9. Risk Assessment Tool Provided: 1-LOW RISK 10. Functional Assessment Tool: 11. Recreational Drug Use: Never Drug Type: Tobacco Use: Never Smoker Tobacco Type: Amount or Packs/day: How Many Years: Alcohol Use: No Frequency: Quant:
== END | disposition home or self-care (01) ==
LOC: PAIN 07:38
PROVIDERS: ATTEND Anesthesiology Pain Medicine
DX: M54.16 Radiculopathy, lumbar region (principal); G89.29 Other chronic pain; M96.1 Postlaminectomy syndrome, not elsewhere classified; M19.90 Unspecified osteoarthritis, unspecified site; Z98.890 Other specified postprocedural states; Z88.6 Allergy status to analgesic agent

== ENCOUNTER → 2021-03-14 | Outpatient (CLI) | payer OTHER ==
[~2021-03-14] VITALS: Ht 157.5 cm; Wt 68.9 kg
[2021-03-14 12:40] VITALS: BP 135/65
--- NOTE | 2021-03-14 12:56 | NUR ---
Pain Clinic Assessment: 1. History of Osteoarthritis: BACK HIPS History of Rheumatoid Arthritis: Not Applicable 2. Height: 5 ft. 2 in. 157.5 cm. Weight: 152.0 lb. oz. 68.947 kg. Patient's BMI: 27.8 3. Vital Signs: BP: 135/65 Pulse: 70 Resp: 14 Temp: 02 Sat: 100 ECG Mon: 4. Pain Intensity: 5-8 5. Fall Risk: Dizziness: N Needs help standing or walking: N Fallen in the last 3 months: N Fall risk comments: 6. Patient on Blood Thinner: Clopidogrel Bisulf(Plavix 7. History of Hypertension: N 8. Opioid Therapy greater than 6 weeks: N Opiate Contract Signed: 9. Risk Assessment Tool Provided: 1-LOW RISK 10. Functional Assessment Tool: 11. Recreational Drug Use: Never Drug Type: Tobacco Use: Never Smoker Tobacco Type: Amount or Packs/day: How Many Years: Alcohol Use: No Frequency: Quant:
== END | disposition home or self-care (01) ==
LOC: PAIN 08:11
PROVIDERS: ATTEND Anesthesiology Pain Medicine
DX: M54.16 Radiculopathy, lumbar region (principal); G89.29 Other chronic pain; M19.90 Unspecified osteoarthritis, unspecified site; Z98.890 Other specified postprocedural states; Z79.899 Other long term (current) drug therapy; Z88.6 Allergy status to analgesic agent